=== PATIENT | female | born 1960 | race Caucasian/White ===

== ENCOUNTER 2016-09-07 14:48 | Emergency (ER) | payer OTHER ==
[~2016-09-07] VITALS: Ht 154.9 cm; Wt 70.9 kg
[2016-09-07 14:52] VITALS: BP 131/75; PULSE 85; RESP 16; TEMP 98.1; O2SAT 98
--- NOTE | 2016-09-07 15:13 | PD ---
HPI Chief Complaint: Skin Problem Time Seen by Provider: 15:08 Travel History International Travel<30 days: No Contact w/Intl Traveler<30days: No Traveled to known affect area: No History of Present Illness HPI Patient is a 56-year-old female presenting with chief complaint of skin growth on the right fifth finger. Present for 1 month. Progressively getting larger. She states it is somewhat tender to touch and occasionally has a pain in the finger and a pain that radiates up to the midforearm. Mainly with use and moving her finger. She denies weakness or paresthesias. She denies fever, chills, weight loss, lymphadenopathy. She denies history of skin cancer or other cancers. She endorses tobacco use. PFSH Past Medical History ?: Not Social History Tobacco Use: Yes Allergies-Medications (Allergen,Severity, Reaction): Coded Allergies: Demerol (Verified Allergy, Severe, RASH, 09/07/16) Latex (Verified Allergy, Severe, RASH, LIPS GO NUMB, 09/07/16) Chicken Feathers (Verified Allergy, Unknown, 09/07/16) Reported Meds & Prescriptions Reported Meds & Active Scripts Active Diclofenac Sodium DR (Diclofenac Sodium) 50 Mg Tabdr 50 Mg PO BID Reported Claritin (Loratadine) 10 Mg Tab 10 Mg PO DAILY Ginkgo Biloba 60 Mg Cap Unknown Dose PO DAILY Vitamin B Complex (B-Complex Vitamins) 1 Tab 1 Tab PO DAILY Multivitamin Adults (Multiple Vitamins W/ Minerals) 1 Tab 1 Tab PO DAILY Advil (Ibuprofen) 200 Mg Cap 1,000 Mg PO BID Ranitidine (Ranitidine HCl) 150 Mg Tab 150 Mg PO DAILY Review of Systems General / Constitutional: No: Fever, Chills, Weight Loss Musculoskeletal: No: Limited ROM Skin: Positive Other (see the history of present illness) Neurologic: No: Weakness, Focal Abnormalities, Paresthesia, Sensory Disturbance Hematologic/Lymphatic: No: Lymph Node Enlargement Physical Exam Narrative GENERAL: Well-developed and well-nourished adult female in no acute distress. SKIN: Warm and dry. Good turgor without tenting. HEAD: Normocephalic and atraumatic. NECK: Supple, no midline tenderness, crepitus or step-offs. Trachea midline, no JVD. CARDIOVASCULAR: Regular rate and rhythm without murmurs, rubs, clicks or gallops. Radial pulses 2+ bilaterally. Capillary refill less than 2 seconds distal tip of the fifth digit right hand. RESPIRATORY: Clear to auscultation bilaterally with symmetrical rise and fall, no distress or use of accessory muscles. LYMPH: Negative right epitrochlear and axillary lymphadenopathy. Negative bilateral supraclavicular, cervical and facial lymphadenopathy. MUSCULOSKELETAL: 18 mm well-circumscribed nodular lesion on the dorsal aspect of the proximal fifth finger of the right hand with a peripheral pearly appearance and a central stalk. It is tender to palpation without discharge, it is mobile. There is no surrounding edema, erythema, warmth or streaking. Patient can fully flex and extend the fifth finger of the right hand. No gait disturbances. Patient freely moving all four extremities spontaneously. Extremities without clubbing, cyanosis, or edema. No obvious deformities. NEUROLOGIC: CN II-XII grossly intact. Awake and alert. Motor grossly within normal limits. Sensation intact distal tip of the fifth digit right hand. Normal speech. PSYCHIATRIC: Appropriate mood and affect; insight and judgment normal. Data Data Last Documented VS Vital Signs Date Time Temp Pulse Resp B/P Pulse Ox O2 Delivery O2 Flow Rate FiO2 09/07/16 14:52 98.1 85 16 131/75 98 Orders Finger ([id number]) (09/07/16 15:06) MDM Medical Decision Making Medical Screen Exam Complete: Yes Emergency Medical Condition: Yes Differential Diagnosis Basal cell carcinoma versus squamous cell carcinoma versus abscess unlikely Narrative Course Patient is a 56-year-old female with a lesion on the fifth finger of the right hand present for one month and has the appearance of a basal cell carcinoma. She has no systemic symptoms or lymphadenopathy. This is mobile and does not appear to be adhered to deep structures. She is neurovascularly intact. No signs of cellulitis. Ordered x-ray which shows the soft tissue growth but no apparent bony involvement. She will be given prescription for diclofenac and a finger splint and recommend follow-up with hand surgeon this week. Given referral for Dr. Chavarria.See discharge paperwork for further instructions. The plan was discussed with the patient who acknowledged their understanding and agreement. Reinforced the follow-up with primary care is critically important. Patient instructed on emergent conditions that should prompt return to ED. Diagnosis Primary Impression: Basal cell carcinoma Referrals: Narayan Chavarria III, MD Patient Instructions: Basal Cell Carcinoma (GEN), General Instructions Departure Forms: Tests/Procedures, Work Release Enter return to work date: Sep 09, 2016 Additional Instructions: Take medications as prescribed Avoid maneuvers that aggravate pain Keep finger splint on while being active or using extremity Follow-up with Dr. Chavarria or another hand surgeon in 2-3 days Return to the ED for any acute worsening of symptoms Med/Other Pt SpecificInfo: Prescription(s) given Scripts Diclofenac Sodium DR 50 Mg Tabdr50 Mg PO BID #10 TAB Prov:Jorge Capps MD 09/07/16 Disposition: 01 DISCHARGE HOME Condition: Stable Juarez Koch III Sep 07, 2016 15:13
[2016-09-07] MEDS ORDERED: RANI150T PO (15:18)
[2016-09-07] MEDS ORDERED: VITATAB11 PO (15:18)
[2016-09-07] MEDS ORDERED: ADVI200C5 PO (15:18)
[2016-09-07] MEDS ORDERED: GINK60CA3 PO (15:18)
[2016-09-07] MEDS ORDERED: MULT1TAB84 PO (15:18)
[2016-09-07] MEDS ORDERED: LORA-361 PO (15:18)
--- NOTE | 2016-09-07 15:51 | RADHPO ---
EXAM DATE/TIME: 09/07/2016 15:37 [facility] COMPARISON: No previous studies available for comparison. INDICATIONS : Right posterior 5th digit swelling for 1 month. MEDICAL HISTORY : None. SURGICAL HISTORY : None. ENCOUNTER: Initial ACUITY: 1 month PAIN SCORE: 10/10 LOCATION: Right posterior 5th digit. FINDINGS: Examination of the fifth digit of the right hand demonstrates no evidence of fracture or dislocation. No radiopaque foreign bodies are seen. There is a focal soft tissue density directly adjacent to th e fifth proximal phalanx. This appears to have no involvement of the bony structure. CONCLUSION: Nonspecific soft tissue nodular density adjacent to the fifth proximal phalanx. Hilario Stewart MD on September 07, 2016 at 15:49 Board Certified Radiologist. This report was verified electronically.
[2016-09-07] MEDS ORDERED: DICL50TA3 PO (15:54)
== END 2016-09-07 16:25 | disposition home or self-care (01) ==
LOC: PHEFT 14:48
DX: C44.612 Basal cell carcinoma of skin of right upper limb, including shoulder (principal); Z72.0 Tobacco use
CPT/HCPCS: 29130; 73140

== ENCOUNTER → 2016-10-01 | Day surgery (SDC) | payer OTHER ==
[~2016-10-01] VITALS: Ht 154.9 cm; Wt 68.2 kg
[~2016-10-01] MED LIST: *ONDANSETRON 4 MG VIAL PERIprocedural Use ONLY ONE; ADVI200C5 PO; BUPIVACAINE HCL PF 0.5% 30 ML VIAL INFIL ONE; DEXAMETHASONE SOD PHOS 4 MG/ML VIAL ONE; DEXT 5%-NACL 0.45% 1000 ML INJ 1,000 ML IV SCH; DICL50TA3 PO; DO NOT ADM ANY ANTICOAGULANT DRUGS XX PRN; FAMOTIDINE 20 MG/2 ML VIAL ONE; GINK60CA3 PO; INSULIN HUMAN REGULAR 1,000 UNITS/10 ML VIAL SQ PRN; LACTATED RINGER'S 1000 ML IV SCH; LORA-361 PO; METOPROLOL TARTRATE 25 MG TAB PO PRN; MIDAZOLAM HCL 2 MG/2 ML VIAL ONE; MORPHINE SULFATE 4 MG/ML INJ ONE; MULT1TAB84 PO; ONDANSETRON HCL 4 MG/2 ML VIAL IV PUSH ONE; PHENYLEPH/NS 1000 MCG/10 ML SYR IV ONE; PROPOFOL 200 MG/20 ML AMP IV ONE; RANI150T PO; SODIUM CHLORID 0.9% 500 ML IV SCH; SODIUM CHLORIDE 0.9% FLUSH 5 ML FLUSH IVF PRN; SODIUM CHLORIDE 0.9% FLUSH 5 ML FLUSH IVF SCH; VITATAB11 PO; ceFAZolin 2 GM PREMIX 50 ML IV SCH; fentaNYL CITRATE 250 MCG/5 ML AMP ONE
[2016-10-01 07:58] VITALS: BP 124/76; PULSE 88; RESP 18; TEMP 98.3; O2SAT 99
[2016-10-01 08:16] LABS: AUTOMATED NEUTROPHIL # 6.2 TH/MM3 (1.8-7.7); BASOPHIL % 0.3 % (0.0-2.0); EOSINOPHIL # 0.1 TH/MM3 (0-0.4); HEMATOCRIT 40.9 % (35.0-46.0); HEMO FLAGS DIFF FINAL; LYMPH % 22.2 % (9.0-44.0); LYMPHOCYTE # 1.9 TH/MM3 (1.0-4.8); MEAN CELL VOLUME 91.7 FL (80.0-100.0); MEAN CORPUSCULAR HGB CONC 34.9 % (32.0-36.0); MONO % 5.2 % (0.0-8.0); NEUT % 71.3 % (16.0-70.0); PLATELET COUNT 259 TH/MM3 (150-450); RED BLOOD COUNT 4.47 MIL/MM3 (4.00-5.30); RED CELL DISTRIBUTION WIDTH 12.7 % (11.6-17.2); WHITE BLOOD COUNT 8.7 TH/MM3 (4.0-11.0)
--- NOTE | 2016-10-01 08:44 | HP.UPD ---
H&P Update Date: Oct 01, 2016 Note The Pre-Admit History and Physical Examination regarding the above named patient was reviewed (including, but not limited to, vital signs, medications, allergies, co-morbid conditions), and upon re-examination it is noted that: Indicated with "X" x - the patient's condition has not significantly changed since the last examination. [] - the patient's condition has changed since the last examination. Changes: Heidy Tinoco MD Oct 01, 2016 08:43
--- NOTE | 2016-10-01 11:21 | HHI.PR ---
Immediate Post Op Note Procedure Date: Oct 01, 2016 Pre Op Diagnosis: (1) Malignant neoplasm of right upper extremity Post Op Diagnosis: (1) Malignant neoplasm of right upper extremity Surgeon: Heidy Tinoco [employer] Head(s): None Procedure: Excision of malignant lesion of the right fifth finger 2x3 cm. Findings: Frozen section showed clear margins. Anesthesia: General Drains: None Tourniquet time (min at mmHg) 46 minutes at 220 mm Hg. Patient to: PACU Patient Condition: Good Date/Time of Procedure: SEE SURGICAL CARE RECORD Heidy Tinoco MD Oct 01, 2016 11:21
[2016-10-01 12:30] VITALS: BP 104/63; PULSE 73; RESP 16; TEMP 97; O2SAT 97
--- NOTE | 2016-10-01 17:15 | EKG ---
Date Performed: 10/01/2016 Time Performed: 07:53:26 PTAGE: 56 years EKG: Sinus rhythm NORMAL ECG NO PREVIOUS TRACING DOCTOR: Any Curran Interpretating Date/Time 10/01/2016 17:14:36
--- NOTE | 2016-10-02 16:39 | MP ---
cc: LALO DAVENPORT M.D. DATE OF SURGERY: 10/01/2016 PREOPERATIVE DIAGNOSIS: Malignant lesion of the right fifth finger dorsally. POSTOPERATIVE DIAGNOSIS: Malignant lesion of the right fifth finger dorsally. OPERATIVE PROCEDURE PERFORMED: Excision of a malignant lesion of the right fifth finger 2.0 x 3.0 cm in greatest dimension. ANESTHESIA: General SURGEON: Lalo Davenport M.D. INDICATIONS 56-year-old female with a rapidly growing lesion on the dorsal aspect of her right fifth finger. FINDINGS: Frozen section indicated that it was a well-differentiated squamous cell carcinoma. The frozen section also indicated that the deep margin was clear but close. The lesion was just adjacent to the peritenon, which was then partially removed and additional tissue was sent for permanent sections. TOURNIQUET TIME: 46 minutes. tourniquet time was 46 minutes. DESCRIPTION OF THE PROCEDURE IN DETAIL: The patient was seen preoperatively where the site and side were identified and marked. The patient was then taken to the operating room and placed in a supine position. Her identity was checked against the arm band and the consent form, site and side confirmed, time-out called prior to beginning procedure. The to be area be incised was outlined with a marking pen as a circular excision of the mass with a 5 mm border. The arm was then exsanguinated and the tourniquet inflated to 220 mmHg. A #15 blade was then used to incise along the edges. Under loupe magnification, the mass was carefully . The distal part of the lesion was marked and called "distal 12 o'clock" and a single stitch was placed once the mass was removed. Dissection was continued around the edges and small vessels were cauterized with the bipolar cautery. The lesion was excised and the deep margin did appear not to be involved but it was taken down to the peritenon. It was then sent off for pathology. Once the pathologist's report came back, some additional tissue was taken from adjacent to the extensor tendon as well as some other peritenon and this was sent off for pathologic emanation. The wound was then copiously irrigated with saline and the tourniquet was released after 46 minutes of tourniquet time. Pressure was applied. After several minutes there was no evidence of any oozing and a dressing was applied using PuraPly which was applied and covered with Voltek dressing. This was then covered with Telfa, an I-Pad, 4x4s, a dressing and the hand was then splinted. At the beginning of the case just prior to dissection, the area was infiltrated on the palmar and dorsal surfaces with bupivacaine 0.5% plain proximal to the area of the involvement. Once the dressing was in place, the patient was taken from the operating room to the recovery room in satisfactory condition having tolerated procedure well. Postoperative instructions include keeping the arm elevated, keeping the area clean and dry and returning next at 03:00 p.m. for follow up. MD GAYATRI Cortez/[facility] /11:24 AM /2:32 PM
== END | disposition home or self-care (01) ==
LOC: HSDC 07:22
PROVIDERS: ATTEND Specialist
DX: C44.622 Squamous cell carcinoma of skin of right upper limb, including shoulder (principal); Z01.810 Encounter for preprocedural cardiovascular examination
CPT/HCPCS: 00400; 11623; 15275; 85025; 88305; 88331; 93005; J0690; J1100; J2250; J2270; J2370; J2405; J3010; J7120; Q4172

== ENCOUNTER → 2016-10-11 | Day surgery (SDC) | payer OTHER ==
[~2016-10-11] VITALS: Ht 154.9 cm; Wt 70.0 kg
[~2016-10-11] MED LIST changes: -*ONDANSETRON 4 MG VIAL PERIprocedural Use ONLY ONE; -BUPIVACAINE HCL PF 0.5% 30 ML VIAL INFIL ONE; +BUPIVACAINE HCL PF 0.5% 30 ML VIAL ONE; -DEXAMETHASONE SOD PHOS 4 MG/ML VIAL ONE; -DICL50TA3 PO; -DO NOT ADM ANY ANTICOAGULANT DRUGS XX PRN; -INSULIN HUMAN REGULAR 1,000 UNITS/10 ML VIAL SQ PRN; +KETAMINE HCL 500 MG/10 ML VIAL ONE; +LACTATED RINGER'S 1000 ML INJ 1,000 ML IV ONE; +LACTATED RINGER'S 1000 ML INJ 1,000 ML ONE; -LACTATED RINGER'S 1000 ML IV SCH; +LIDOCAINE 1%/EPINEPHrine 1:100,000 SOLN 30 ML VIAL ONE; -METOPROLOL TARTRATE 25 MG TAB PO PRN; +MIDAZOLAM HCL 5 MG/5 ML VIAL ONE; -MORPHINE SULFATE 4 MG/ML INJ ONE; -PHENYLEPH/NS 1000 MCG/10 ML SYR IV ONE; +RESP: ALBUTEROL 2.5 MG/3 ML NEB (SCH) ONE; -SODIUM CHLORID 0.9% 500 ML IV SCH; -ceFAZolin 2 GM PREMIX 50 ML IV SCH; +ceFAZolin 2 GM PREMIX 50 ML ONE; +ePHEDrine/NS 25 MG/5 ML SYR IV ONE; -fentaNYL CITRATE 250 MCG/5 ML AMP ONE
[2016-10-11 08:39] VITALS: BP 99/62; PULSE 84; RESP 20; TEMP 97.9; O2SAT 98
[2016-10-11 08:46] LABS: MEAN CELL VOLUME 93.2 FL (80.0-100.0); MEAN CORPUSCULAR HEMOGLOBIN 31.6 PG (27.0-34.0); MEAN CORPUSCULAR HGB CONC 33.9 % (32.0-36.0); PLATELET COUNT 291 TH/MM3 (150-450); RED BLOOD COUNT 4.61 MIL/MM3 (4.00-5.30); RED CELL DISTRIBUTION WIDTH 12.2 % (11.6-17.2); REVIEW FLAG FINAL; WHITE BLOOD COUNT 7.7 TH/MM3 (4.0-11.0)
--- NOTE | 2016-10-11 10:49 | HP.UPD ---
H&P Update Date: Oct 11, 2016 Note The Pre-Admit History and Physical Examination regarding the above named patient was reviewed (including, but not limited to, vital signs, medications, allergies, co-morbid conditions), and upon re-examination it is noted that: Indicated with "X" x - the patient's condition has not significantly changed since the last examination. [] - the patient's condition has changed since the last examination. Changes: Heidy Tinoco MD Oct 11, 2016 10:48
--- NOTE | 2016-10-11 13:12 | HHI.PR ---
Immediate Post Op Note Procedure Date: Oct 11, 2016 Pre Op Diagnosis: (1) Malignant neoplasm of right upper extremity Post Op Diagnosis: (1) Malignant neoplasm of right upper extremity (2) Open wound of right little finger without damage to nail Surgeon: Heidy Tinoco Division Operations Specialist(s): None Procedure: Full thickness skin graft to right fifth finger. Estimated blood loss: 10 ml Anesthesia: MAC Drains: None Tourniquet time (min at mmHg) NA Patient to: Other (Secondary holding) Heidy Tinoco MD Oct 11, 2016 13:12
[2016-10-11 13:50] VITALS: BP 120/66; PULSE 68; RESP 16; TEMP 97.4; O2SAT 99
--- NOTE | 2016-10-11 14:30 | MP ---
cc: LALO DAVENPORT M.D. DATE OF SURGERY: 10/11/2016 PREOPERATIVE DIAGNOSIS 1. Malignant neoplasm of right fifth finger. 2. Open wound of right fifth finger. POSTOPERATIVE DIAGNOSIS 1. Malignant neoplasm of right fifth finger. 2. Open wound of right fifth finger. PROCEDURE Full-thickness skin graft to right fifth finger from inner aspect of the right arm. ANESTHESIA Local with MAC. SURGEON Dr. Davenport. INDICATIONS A 56-year-old female who had a squamous cell carcinoma removed from the dorsal aspect of the right fifth finger. It went on to granulate without evidence of recurrence. The pathology showed that the margins were all free and that the tissue which was secondarily excised was also free of cancer cells. FINDINGS The defect which measured 2 x 2.5 cm at the completion of the procedure was covered with full-thickness skin graft. Operative time was approximately 1 hour and 15 minutes. PROCEDURE The patient was seen preoperatively where the site and side were identified and marked. The patient was then taken to the operating room, placed in supine position. Her identity was checked against the arm band and the consent form, site and side confirmed, time-out called prior to beginning the procedure. The right upper extremity was prepped with Hibiclens and draped in usual sterile fashion. The size of the defect was measured without actual contact as 2 x 2.5 cm and was transposed to the upper arm where an ellipse was designed in order to have enough skin for the excision. The area of the arm was infiltrated with lidocaine 1% with epinephrine. Once the anesthetic had taken effect, a #15 blade was used to make the incision down through skin, down to the subcutaneous tissue. The skin was then removed and any fat which was adherent to the deep surface was removed and it was placed in a moist sponge. The wound was then widely undermined and closed with interrupted 4-0 Vicryl to the deep layer and a subcuticular 4-0 Prolene to the skin. Small vessels were cauterized with bipolar cautery. Povidone-iodine ointment was then applied to this area along with Adaptic with a gauze in the central portion. Attention then turned to the finger which had been infiltrated with bupivacaine 0.5% plain and the edges of the wound were excised in order to clean it and the granulation surface was also debrided of epithelium and biofilm. It was then washed and dried. The skin was then placed into the wound and sewn in place with 5-0 nylon suture material with several sutures left long. Once it was sewn into place it was covered with povidone-iodine ointment and Telfa. Wet cotton was then placed on top of it and cotton balls were sewn in with the sutures which had been left long. Just prior to placing the dressing the skin was pie-crusted in order to allow for drainage. Once the cotton balls were in place, the hand was cleansed of Betadine and blood and Hibiclens and a dressing was applied using 4x4s and hand wrap and a palmar splint. The patient was then taken from the operating room to the recovery room in satisfactory condition having tolerated the procedure well. Postoperative instructions include keeping the arm elevated, keeping it clean and dry and returning in several days for follow up. MD GAYATRI Cortez/[facility] /1:11 PM /2:20 PM
--- NOTE | 2016-10-12 16:04 | EKG ---
Date Performed: 10/11/2016 Time Performed: 09:21:38 PTAGE: 56 years EKG: Sinus rhythm Normal ECG PREVIOUS TRACING : 10/01/2016 07.53 No significant change from previous tracing noted. DOCTOR: Feliciano Kahn Interpretating Date/Time 10/12/2016 16:02:38
== END | disposition home or self-care (01) ==
LOC: PHSDC 08:15
PROVIDERS: ATTEND Specialist
DX: C76.41 Malignant neoplasm of right upper limb (principal); S61.206D Unspecified open wound of right little finger without damage to nail, subsequent encounter; J45.909 Unspecified asthma, uncomplicated; Z01.810 Encounter for preprocedural cardiovascular examination
CPT/HCPCS: 00400; 15240; 36415; 85027; 93005; J0690; J2250; J2405; J3010; J7120; J7613